=== PATIENT | female | born 1965 | race African-American/Black ===

== ENCOUNTER 2019-03-28 07:16 | Emergency (ER) | payer OTHER ==
[~2019-03-28] VITALS: Ht 172.7 cm; Wt 135.2 kg
[~2019-03-28 07:16] MED LIST: APAP650 PO; DEPAKOTE ER250 MG; LIDODERM 5%1 PATCH TOP; NOHOMEMEDICATIONS; NORCO 5-325 TA1 EACH PO; PERCOCET 5-3251 EACH PO; TRAMADOL 50 MG50 MG PO
[2019-03-28] MEDS ORDERED: ARIPIPRAZOLE15 MG PO (08:03)
[2019-03-28] MEDS ORDERED: LIORESAL 10 MG10 MG PO (08:03)
[2019-03-28] MEDS ORDERED: MUCINEX600 MG PO (08:04)
[2019-03-28] MEDS ORDERED: CLARITIN10 MG PO (08:05)
[2019-03-28] MEDS ORDERED: HYDROXYZINE PAM50 MG PO (08:06)
[2019-03-28] MEDS ORDERED: LOVAZA1000 MG PO (08:08)
[2019-03-28] MEDS ORDERED: NAPROSYN500 MG PO (08:33)
[2019-03-28] MEDS ORDERED: NORFLEX100 MG PO (08:33)
[2019-03-28 08:35] VITALS: BP 139/82
== END 2019-03-28 08:35 | disposition home or self-care (01) ==
LOC: ER 07:16
DX: M25.511 Pain in right shoulder (principal); M43.6 Torticollis; F20.0 Paranoid schizophrenia